=== PATIENT | female | born 1995 | race Caucasian/White ===

== ENCOUNTER 2021-11-14 17:37 | Observation (INO) | payer MEDICAID ==
[~2021-11-14] VITALS: Ht 154.9 cm; Wt 83.9 kg
--- NOTE | 2021-11-14 19:58 | NUR ---
[PATIENT DECIDED TO LEAVE THE HOSPITAL AGAINST MEDICAL ADVICE . PT INFORMED TEST DONE ARE PENDING RESULT BUT STILL WANTED TO LEAVE THE HOSPITAL . MD DR FERRARA INFORMED . PT SIGNED AMA FORM AND LEFT @ 1950
== END 2021-11-14 19:50 | disposition left against medical advice (07) ==
LOC: SPU 17:37
PROVIDERS: ADMIT Obstetrics & Gynecology; ATTEND Obstetrics & Gynecology
DX: O26.892 Other specified pregnancy related conditions, second trimester (principal); R10.32 Left lower quadrant pain; Z3A.25 25 weeks gestation of pregnancy; W50.0XXA Accidental hit or strike by another person, initial encounter; Y93.89 Activity, other specified; Y92.830 Public park as the place of occurrence of the external cause; Z53.29 Procedure and treatment not carried out because of patient's decision for other reasons
CPT/HCPCS: 76805; 81002; G0379; G0378

== ENCOUNTER 2021-11-20 02:30 | Observation (INO) | payer MEDICAID ==
[~2021-11-20] VITALS: Ht 157.5 cm; Wt 82.6 kg
== END 2021-11-20 04:17 | disposition home or self-care (01) ==
LOC: SPU 02:30
PROVIDERS: ADMIT Obstetrics & Gynecology; ATTEND Obstetrics & Gynecology
DX: O46.92 Antepartum hemorrhage, unspecified, second trimester (principal); O62.9 Abnormality of forces of labor, unspecified; Z3A.25 25 weeks gestation of pregnancy
CPT/HCPCS: 81002; G0379; G0378

== ENCOUNTER 2022-02-09 22:06 | Observation (INO) | payer MEDICAID | END 2022-02-10 00:17 | disposition home or self-care (01) | LOC: UNDOADMOB 22:06 → SPU 22:06 | PROVIDERS: ADMIT Obstetrics & Gynecology; ATTEND Obstetrics & Gynecology | DX: O62.9 Abnormality of forces of labor, unspecified (principal); O34.63 Maternal care for abnormality of vagina, third trimester; N89.8 Other specified noninflammatory disorders of vagina; Z3A.36 36 weeks gestation of pregnancy | CPT/HCPCS: G0378 ==

== ENCOUNTER 2022-06-24 12:46 | Emergency (ER) | payer MEDICAID ==
[~2022-06-24] VITALS: Ht 175.3 cm; Wt 86.2 kg
[2022-06-24 13:02] VITALS: BP_SYST 143
[2022-06-24 13:29] LABS: CLARITY/URINE CLOUDY (CLEAR); COLOR,URINE RED (YELLOW); PH,URINE 5.5 (5.0-8.0)
[2022-06-24 13:30] LABS: BILIRUBIN,URINE 1+ (NEGATIVE); BLOOD, URINE 3+ (NEGATIVE); GLUCOSE,URINE NEGATIVE (NEGATIVE); KETONES,URINE NEGATIVE (NEGATIVE); LEUKOCYTE ESTERASE ,URINE 2+ (NEGATIVE); NITRITE, URINE POSITIVE (NEGATIVE); PROTEIN URINE 2+ (NEGATIVE)
[2022-06-24] MEDS ORDERED: KETOROLAC TROMETHAMINE 60 MG/2 ML VIAL IM ONE (13:30)
[2022-06-24] MEDS ORDERED: PENICILLIN G BENZATHINE 1.2 MMU/2 ML SYR IM ONE (13:30)
[2022-06-24 13:39] LABS: BACTERIA,URINE FEW /HPF (None Seen)
[2022-06-24] MEDS ORDERED: IBUP-1971 PO (13:44)
[2022-06-24] MEDS ORDERED: CIPR500T5 PO (13:44)
[2022-06-24] MEDS ORDERED: PHEN-801 PO (13:44)
[2022-06-24] MEDS ORDERED: ONDA8TAB60 PO (13:44)
[2022-06-24 14:00] LABS: RBC,URINE 80-100 /HPF (0-3)
[2022-06-24 14:01] LABS: WBC,URINE 20-50 /HPF (0-3)
== END 2022-06-24 13:53 | disposition home or self-care (01) ==
LOC: SED 12:46
DX: N39.0 Urinary tract infection, site not specified (principal); R31.9 Hematuria, unspecified; R30.0 Dysuria; R11.0 Nausea; Z79.899 Other long term (current) drug therapy
CPT/HCPCS: 81000; 87086; 99283

== ENCOUNTER 2022-09-17 10:30 | Emergency (ER) | payer MEDICAID ==
[~2022-09-17] VITALS: Ht 154.9 cm; Wt 88.5 kg
[~2022-09-17 10:30] MED LIST: CIPR500T5 PO; IBUP-1971 PO; ONDA8TAB60 PO; PHEN-801 PO
[2022-09-17 10:45] VITALS: BP_SYST 137; PULSE 101; RESP 16; TEMP 98; O2SAT 96
[2022-09-17 11:11] LABS: BILIRUBIN,URINE NEGATIVE (NEGATIVE); BLOOD, URINE 1+ (NEGATIVE); CLARITY/URINE SL CLOUDY (CLEAR); COLOR,URINE YELLOW (YELLOW); GLUCOSE,URINE NEGATIVE (NEGATIVE); KETONES,URINE NEGATIVE (NEGATIVE); LEUKOCYTE ESTERASE ,URINE 3+ (NEGATIVE); NITRITE, URINE POSITIVE (NEGATIVE); PROTEIN URINE 1+ (NEGATIVE); UROBILINOGEN,URINE 0.2 (0.2-1.0)
[2022-09-17 11:17] LABS: BACTERIA,URINE MODERATE /HPF (None Seen); WBC,URINE 50-80 /HPF (0-3)
[2022-09-17] MEDS ORDERED: NITR-85 PO (11:46)
[2022-09-17 12:15] VITALS: BP_SYST 137; PULSE 101; RESP 16; TEMP 98; O2SAT 96
== END 2022-09-17 12:00 | disposition left against medical advice (07) ==
LOC: SED 10:30
DX: R30.0 Dysuria (principal); Z79.899 Other long term (current) drug therapy
CPT/HCPCS: 81000; 87086; 99283

== ENCOUNTER 2022-09-19 00:02 | Emergency (ER) | payer MEDICAID ==
[~2022-09-19] VITALS: Ht 154.9 cm; Wt 88.5 kg
[~2022-09-19 00:02] MED LIST changes: +NITR-85 PO
[2022-09-19 00:11] VITALS: BP_SYST 128; PULSE 100; RESP 20; TEMP 98.3; O2SAT 96
[2022-09-19 01:19] LABS: BILIRUBIN,URINE NEGATIVE (NEGATIVE); BLOOD, URINE NEGATIVE (NEGATIVE); CLARITY/URINE SL CLOUDY (CLEAR); COLOR,URINE YELLOW (YELLOW); GLUCOSE,URINE NEGATIVE (NEGATIVE); KETONES,URINE TRACE (NEGATIVE); LEUKOCYTE ESTERASE ,URINE TRACE (NEGATIVE); NITRITE, URINE NEGATIVE (NEGATIVE); PROTEIN URINE TRACE (NEGATIVE); UROBILINOGEN,URINE 0.2 (0.2-1.0)
[2022-09-19 01:30] LABS: BACTERIA,URINE MODERATE /HPF (None Seen); RBC,URINE 0-3 /HPF (0-3); WBC,URINE 20-50 /HPF (0-3)
[2022-09-19] MEDS ORDERED: cefTRIAXone 1 GM in LIDOCAINE 1%, 20 ML MDV 2.1 ML IM ONE (02:00)
[2022-09-19] MEDS ORDERED: PHEN-727 PO (02:05)
[2022-09-19 02:31] VITALS: BP_SYST 128; PULSE 100; RESP 20; TEMP 98.3; O2SAT 96
[2022-09-20 08:07] LABS: HSV 1 IgG, TYPE SPECIFIC <0.91 index (0.00-0.90); HSV 2 IgG, TYPE SPECIFIC <0.91 index (0.00-0.90)
== END 2022-09-19 02:32 | disposition home or self-care (01) ==
LOC: SED 00:02
DX: O23.41 Unspecified infection of urinary tract in pregnancy, first trimester (principal); N39.0 Urinary tract infection, site not specified; O23.21 Infections of urethra in pregnancy, first trimester; Z79.899 Other long term (current) drug therapy; O26.891 Other specified pregnancy related conditions, first trimester; R10.2 Pelvic and perineal pain; Z3A.01 Less than 8 weeks gestation of pregnancy
CPT/HCPCS: 99284; 86695; 86696; 81000; 84702; 87070; 87086; 87210; 36415; 96372; 87491; J0696; J2001

== ENCOUNTER 2022-11-26 14:13 | Emergency (ER) | payer MEDICAID ==
[~2022-11-26] VITALS: Ht 154.9 cm; Wt 88.5 kg
[~2022-11-26 14:13] MED LIST changes: +PHEN-727 PO
[2022-11-26 14:24] VITALS: BP_SYST 180; PULSE 97; RESP 20; TEMP 98.3; O2SAT 98
[2022-11-26 14:40] LABS: BASOPHILS # (AUTO) 0.1 K/uL (0.0-0.2); BASOPHILS % (AUTO) 0.6 % (0.0-2.0); EOSINOPHILS # (AUTO) 0.2 K/uL (0.0-0.4); EOSINOPHILS % (AUTO) 1.5 % (0.0-4.0); HEMATOCRIT 37.2 % (36-48); HEMOGLOBIN 11.8 g/dL (12.0-16.0); LYMPHOCYTES # (AUTO) 2.8 K/uL (1.0-5.5); LYMPHOCYTES % (AUTO) 26.7 % (20.5-51.5); MEAN CORPUSCULAR HEMOGLOBIN 25 pg (27-31); MEAN CORPUSCULAR HGB CONC 32 % (32-36); MEAN CORPUSCULAR VOLUME 77 fL (79.0-98.0); MONOCYTES # (AUTO) 0.6 K/uL (0.0-1.0); MONOCYTES % (AUTO) 5.2 % (1.7-9.3); PLATELET COUNT (AUTO) 384 K/uL (130-430); RED BLOOD CELL COUNT(AUTO) 4.82 MIL/uL (4.2-6.2); RED CELL DISTRIBUTION WIDTH 15.3 % (9.0-15.0); WHITE BLOOD COUNT (AUTO) 10.7 K/uL (4.8-10.8)
[2022-11-26 15:33] LABS: PROTHROMBIN TIME 10.1 SECS (9.5-12.5)
== END 2022-11-26 16:21 | disposition home or self-care (01) ==
LOC: SED 14:13
DX: O04.80 (Induced) termination of pregnancy with unspecified complications (principal); N93.9 Abnormal uterine and vaginal bleeding, unspecified; R10.30 Lower abdominal pain, unspecified; Z79.899 Other long term (current) drug therapy
CPT/HCPCS: 36415; 76856-TC; 81025; 85025; 85610-TC; 99284

== ENCOUNTER 2023-02-05 08:27 | Emergency (ER) | payer MEDICAID ==
[~2023-02-05] VITALS: Ht 162.6 cm; Wt 66.7 kg
[2023-02-05 08:37] VITALS: BP_SYST 141; PULSE 102; RESP 22; TEMP 98.3; O2SAT 98
[2023-02-05 08:59] LABS: BILIRUBIN,URINE NEGATIVE (NEGATIVE); BLOOD, URINE 3+ (NEGATIVE); CLARITY/URINE SL CLOUDY (CLEAR); COLOR,URINE ORANGE (YELLOW); GLUCOSE,URINE TRACE (NEGATIVE); KETONES,URINE NEGATIVE (NEGATIVE); LEUKOCYTE ESTERASE ,URINE 2+ (NEGATIVE); NITRITE, URINE POSITIVE (NEGATIVE); PH,URINE 6.5 (5.0-8.0); PROTEIN URINE 3+ (NEGATIVE)
[2023-02-05] MEDS ORDERED: PHEN-801 PO (09:17)
[2023-02-05] MEDS ORDERED: NITR-85 PO (09:17)
[2023-02-05 09:21] LABS: BACTERIA,URINE FEW /HPF (None Seen); RBC,URINE 20-50 /HPF (0-3); WBC,URINE >100 /HPF (0-3)
[2023-02-05 09:29] VITALS: BP_SYST 132; PULSE 80; RESP 18; TEMP 98; O2SAT 98
== END 2023-02-05 09:26 | disposition home or self-care (01) ==
LOC: SED 08:27
DX: N39.0 Urinary tract infection, site not specified (principal); R30.0 Dysuria; R39.15 Urgency of urination; Z79.899 Other long term (current) drug therapy
CPT/HCPCS: 81000; 81001; 81015; 81025; 87086; 99283

== ENCOUNTER 2023-04-14 10:03 | Emergency (ER) | payer MEDICAID ==
[~2023-04-14] VITALS: Ht 154.9 cm; Wt 88.5 kg
[2023-04-14 10:12] VITALS: BP_SYST 138; PULSE 86; RESP 17; TEMP 97.9; O2SAT 97
[2023-04-14 10:25] VITALS: BP_SYST 138; PULSE 86; RESP 17; TEMP 97.9; O2SAT 97
[2023-04-14] MEDS ORDERED: IBUP-1969 PO (11:33)
== END 2023-04-14 11:48 | disposition home or self-care (01) ==
LOC: SED 10:03
DX: S62.352A Nondisplaced fracture of shaft of third metacarpal bone, right hand, initial encounter for closed fracture (principal); Z79.899 Other long term (current) drug therapy; W22.09XA Striking against other stationary object, initial encounter; Y93.89 Activity, other specified; Y92.89 Other specified places as the place of occurrence of the external cause; Y99.8 Other external cause status
CPT/HCPCS: 99283

== ENCOUNTER 2023-08-12 10:27 | Emergency (ER) | payer MEDICAID ==
[~2023-08-12] VITALS: Ht 152.4 cm; Wt 81.6 kg
[~2023-08-12 10:27] MED LIST changes: +IBUP-1969 PO
[2023-08-12 10:51] VITALS: BP_SYST 130; RESP 16; TEMP 98; O2SAT 98
[2023-08-12 13:30] LABS: BILIRUBIN,URINE NEGATIVE (NEGATIVE); COLOR,URINE YELLOW (YELLOW); GLUCOSE,URINE NEGATIVE (NEGATIVE); KETONES,URINE NEGATIVE (NEGATIVE); LEUKOCYTE ESTERASE ,URINE NEGATIVE (NEGATIVE); NITRITE, URINE NEGATIVE (NEGATIVE); PH,URINE 6.5 (5.0-8.0); PROTEIN URINE NEGATIVE (NEGATIVE); UROBILINOGEN,URINE 0.2 (0.2-1.0)
[2023-08-12 13:32] LABS: BLOOD, URINE TRACE (NEGATIVE); CLARITY/URINE SLIGHTLY HAZY (CLEAR)
[2023-08-12 13:51] LABS: BACTERIA,URINE MODERATE /HPF (None Seen); MUCUS,URINE 1+ /LPF (None Seen); RBC,URINE 0-3 /HPF (0-3)
[2023-08-12] MEDS: AZITHROMYCIN 250 MG TABLET PO ONE (14:24)
[2023-08-12] MEDS ORDERED: cefTRIAXone 500 MG VIAL ONE (14:32)
[2023-08-12] MEDS: cefTRIAXone 250 MG VIAL IM ONE (14:37)
[2023-08-12] MEDS ORDERED: DOXY100C5 PO (15:09)
[2023-08-12 15:14] VITALS: BP_SYST 123; PULSE 82; RESP 15; TEMP 98; O2SAT 100
== END 2023-08-12 15:14 | disposition home or self-care (01) ==
LOC: SED 10:27
DX: N76.0 Acute vaginitis (principal); R30.0 Dysuria; R03.0 Elevated blood-pressure reading, without diagnosis of hypertension; Z79.899 Other long term (current) drug therapy; Z79.2 Long term (current) use of antibiotics
CPT/HCPCS: 99283; 81001; 87086; 36415; 81025; 96372; J0696; Q0144; 81000; 81015